=== PATIENT | female | born 1945 | race Caucasian/White ===

== ENCOUNTER → 2017-04-02 | Outpatient (CLI) | payer MEDICARE ==
[~2017-04-02] MED LIST: AMLO2.5T PO; BENA20TA2 PO; BETA1TAB3 PO; CETI10TA24 PO; CHOL200024 PO; CYAN1TAB29 PO; DILT120C64 PO; FENO134C PO; GABA300C10 PO; HYDR-3343 PO; HYDR25TA6 PO; LEVO175T5 PO; LIOT5TAB3 PO; METO25TA91 PO; MULT-717 PO; OMEP-110 PO; RIVA20TA PO; TRAM50TA2 PO; VITA1TAB3 PO
[2017-04-02 13:22] LABS: HEMATOCRIT 47.6 % (34.6-47.8); HEMOGLOBIN 16.5 g/dL (11.7-16.4); WHITE BLOOD COUNT 7.1 x10^3/uL (3.4-10)
[2017-04-02 13:35] LABS: ASPARTATE AMINO TRANSFERASE 36 U/L (15-37); BLOOD UREA NITROGEN 22 mg/dL (7-18)
== END | disposition home or self-care (01) ==
LOC: STAR 12:22
PROVIDERS: ATTEND Internal Medicine Cardiovascular Disease
DX: I48.1 Persistent atrial fibrillation (principal)
CPT/HCPCS: 36415; 80053; 85025; 85610; 85730

== ENCOUNTER → 2017-04-02 | Outpatient (CLI) | payer MEDICARE ==
[~2017-04-02] MED LIST changes: +HEPARIN 1,000 UNITS/ML, 10ML ONE; +OMNIPAQUE 350 MG/ML, 150 ML BOTTLE ONE; +PROTAMINE SULFATE 10 MG/ML, 5ML ONE; +VASOPRESSIN 20 UNIT/ML, 1ML ONE
== END | disposition home or self-care (01) ==
LOC: CFH 10:43
PROVIDERS: ATTEND Internal Medicine Cardiovascular Disease
DX: Z01.811 Encounter for preprocedural respiratory examination (principal); I48.0 Paroxysmal atrial fibrillation; K44.9 Diaphragmatic hernia without obstruction or gangrene
CPT/HCPCS: 71020; 75572; 82565; Q9967

== ENCOUNTER 2017-04-07 06:37 | Observation (INO) | payer MEDICARE ==
[2017-04-02 13:21] VITALS: BP 117/88
[~2017-04-07] VITALS: Ht 160 cm; Wt 88.8 kg
[~2017-04-07 06:37] MED LIST changes: -HEPARIN 1,000 UNITS/ML, 10ML ONE; -OMNIPAQUE 350 MG/ML, 150 ML BOTTLE ONE; -PROTAMINE SULFATE 10 MG/ML, 5ML ONE; -VASOPRESSIN 20 UNIT/ML, 1ML ONE
[2017-04-07] MEDS ORDERED: SODIUM CHLORIDE 0.9% 1,000 ML IV SCH ×2 (06:48→07:00)
[2017-04-07] MEDS ORDERED: MIDAZOLAM 1 MG/ML, 5ML ONE (07:43)
[2017-04-07] MEDS ORDERED: FENTANYL PF 250 MCG/5ML ONE (07:43)
[2017-04-07] MEDS ORDERED: PROPOFOL 10 MG/ML, 20ML ONE (08:05)
[2017-04-07] MEDS ORDERED: HEPARIN 1,000 UNITS/ML, 10ML ONE (08:05)
[2017-04-07] MEDS ORDERED: VASOPRESSIN 20 UNIT/ML, 1ML ONE (08:05)
[2017-04-07] MEDS ORDERED: DEXAMETHASONE 4 MG/ML, 1ML ONE (08:05)
[2017-04-07] MEDS ORDERED: SUCCINYLCHOLINE 20 MG/ML, 10ML ONE (08:05)
[2017-04-07] MEDS ORDERED: ONDANSETRON 2MG/ML, 2ML ONE (08:05)
[2017-04-07] MEDS ORDERED: PROTAMINE SULFATE 10 MG/ML, 5ML ONE (08:05)
[2017-04-07] MEDS ORDERED: LIDOCAINE 2%, 20ML ONE (08:19)
[2017-04-07] MEDS ORDERED: METOPROLOL SUCCINATE 25 MG TAB.ER.24H PO SCH (10:30)
[2017-04-07] MEDS ORDERED: RIVAROXABAN 20 MG TABLET PO SCH (10:30)
[2017-04-07] MEDS ORDERED: ZOLPIDEM 5MG TABLET PO PRN (10:30)
[2017-04-07] MEDS ORDERED: ACETAMINOPHEN 325 MG TABLET PO PRN ×2 (10:30→11:30)
[2017-04-07] MEDS ORDERED: OXYcodone 5 MG/5 ML ORAL.SOL UDC PO PRN (11:30)
[2017-04-07] MEDS ORDERED: HYDROmorphone 1 MG/ML, 1ML IV PRN (11:30)
[2017-04-07] MEDS ORDERED: MIDAZOLAM 1 MG/ML, 2ML IV PRN (11:30)
[2017-04-07] MEDS ORDERED: PROMETHAZINE 25 MG/ML, 1ML IV PRN (11:30)
[2017-04-07] MEDS ORDERED: ONDANSETRON 2MG/ML, 2ML IVPush PRN (11:30)
[2017-04-07] MEDS ORDERED: FENTANYL PF 100 MCG/2ML IV PRN (11:30)
[2017-04-07 15:00] VITALS: BP 113/69
[2017-04-07] MEDS: GABAPENTIN 300 MG CAPSULE PO SCH ×2 (16:44→21:04)
[2017-04-07 18:55] VITALS: BP 116/71
[2017-04-08 00:55] VITALS: BP 131/74
[2017-04-08 07:07] VITALS: BP 154/83
[2017-04-08] MEDS: GABAPENTIN 300 MG CAPSULE PO SCH (08:15)
[2017-04-08] MEDS ORDERED: FENOFIBRATE 145 MG TABLET PO SCH (09:00)
[2017-04-08] MEDS ORDERED: MULTIVITAMINS/MINERALS TABLET PO SCH (09:00)
[2017-04-08] MEDS ORDERED: FOLIC ACID 1 MG TABLET PO SCH (09:00)
[2017-04-08] MEDS ORDERED: DILTIAZEM 120 MG CAP.ER.24H PO SCH (09:00)
[2017-04-08] MEDS ORDERED: OMEPRAZOLE 10 MG CAPSULE.DR PO SCH (09:00)
[2017-04-08] MEDS ORDERED: CETIRIZINE 10 MG TABLET PO SCH (09:00)
[2017-04-08] MEDS ORDERED: HYDROCHLOROTHIAZIDE 25 MG TABLET PO SCH (09:00)
[2017-04-08] MEDS ORDERED: AMLODIPINE 2.5 MG TABLET PO SCH (09:00)
[2017-04-08] MEDS ORDERED: BENAZEPRIL 20 MG TABLET PO SCH (09:00)
[2017-04-08] MEDS ORDERED: LEVOTHYROXINE 175 MCG TABLET PO SCH (09:00)
[2017-04-08] MEDS ORDERED: CYANOCOBALAMIN 1,000 MCG TABLET PO SCH (09:00)
[2017-04-08] MEDS ORDERED: LIOTHYRONINE 5 MCG TABLET PO SCH (09:00)
[2017-04-08] MEDS ORDERED: CHOLECALCIFEROL 1,000 UNIT TABLET PO SCH (09:00)
[2017-04-08] MEDS ORDERED: MULTIVITS,STRESS FORMULA 1 TABLET PO SCH (09:00)
== END 2017-04-08 12:26 | disposition home or self-care (01) ==
LOC: CACL 06:37 → ORIP 10:30 → 5SO 12:04 → DCLOUNGE 04-08 11:50
PROVIDERS: ADMIT Internal Medicine Cardiovascular Disease; ATTEND Internal Medicine Cardiovascular Disease
DX: I48.91 Unspecified atrial fibrillation (principal); I48.92 Unspecified atrial flutter; Z79.01 Long term (current) use of anticoagulants
CPT/HCPCS: 85347; 93306; 93312; 93321; 93325; 93613; 93655; 93656; 93662; C1730; C1732; C1759; C1766; C1893; C1894; G0378; J0330; J1100; J1644; J2250; J2405; J2704; J2720; J3010; J3490

== ENCOUNTER → 2020-03-29 | Outpatient (CLI) | payer MEDICARE ==
[~2020-03-29] MED LIST changes: +AMLO10TA8 PO; -AMLO2.5T PO; +AMLO2.5T5 PO; +ASPI81TA45 PO; -BENA20TA2 PO; +BENA20TA54 PO; +CETI-158 PO; -CETI10TA24 PO; +CETI10TA76 PO; +CURCUMIN PO; +Cognium PO; +FLUO20TA25 PO; +LEVO200T5 PO; +LIOT5TAB11 PO; -LIOT5TAB3 PO; +LOSA25TA25 PO; +MELO15TA24 PO; +METO10TA2 PO; +METO75TA PO; +MULT-449 PO; +TIZA4TAB2 PO; +TOLT4CAP12 PO; +TRAZ50TA66 PO; +TURMERIC PO; +VITA1TAB19 PO; +Vitamin B12 PO
[2020-03-29 15:04] LABS: ALBUMIN 3.9 g/dL (3.4-5.0); ANION GAP 4 mmol/L (5-15); CALCIUM 9.6 mg/dL (8.5-10.1); CHLORIDE 99 mmol/L (98-107)
[2020-03-29 15:08] LABS: ALANINE AMINOTRANSFERASE 36 U/L (12-78); ALKALINE PHOSPHATASE 79 U/L (45-117); BILIRUBIN,TOTAL 0.6 mg/dL (0.2-1.0); CREATININE 1.24 mg/dL (0.55-1.02); TOTAL PROTEIN 8.2 g/dL (6.4-8.2)
== END | disposition home or self-care (01) ==
LOC: STAR 12:56
PROVIDERS: ATTEND Obstetrics & Gynecology Female Pelvic Medicine and Reconstructive Surgery
DX: Z01.812 Encounter for preprocedural laboratory examination (principal); Z20.828 Contact with and (suspected) exposure to other viral communicable diseases; N81.2 Incomplete uterovaginal prolapse; R10.2 Pelvic and perineal pain; N39.3 Stress incontinence (female) (male)
CPT/HCPCS: 36415; 80053; 87635; 93005

== ENCOUNTER 2020-04-02 06:46 | Day surgery (SDC) | payer MEDICARE ==
[~2020-04-02] VITALS: Ht 160 cm; Wt 70.9 kg
[2020-04-02] MEDS ORDERED: FUROSEMIDE 20 MG/2 ML ONE (06:59)
[2020-04-02] MEDS ORDERED: BUPIVACAINE/PF 0.25% ONE (06:59)
[2020-04-02] MEDS ORDERED: FLUORESCEIN SODIUM 500 MG/5 ML ONE (06:59)
[2020-04-02] MEDS ORDERED: EPINEPHRINE 1 MG/ML, 1ML ONE (06:59)
[2020-04-02] MEDS ORDERED: LACTATED RINGERS 1,000 ML IV SCH (07:00)
[2020-04-02] MEDS ORDERED: NEOMY/POLYMYXIN B GU IRR. 1 ML ONE (07:00)
[2020-04-02] MEDS ORDERED: CHLORHEXIDINE 15 ML UDC MM ONE (07:00)
[2020-04-02 07:06] VITALS: BP 137/79
[2020-04-02] MEDS ORDERED: ACETAMINOPHEN 500 MG TABLET ONE (07:23)
[2020-04-02] MEDS ORDERED: FENTANYL PF 250 MCG/5ML ONE (07:27)
[2020-04-02] MEDS ORDERED: ROCURONIUM 10 MG/ML,10ML ONE (07:29)
[2020-04-02] MEDS ORDERED: PROPOFOL 10 MG/ML, 20ML ONE (07:29)
[2020-04-02] MEDS ORDERED: ACETAMINOPHEN 500 MG TABLET PO ONE (07:30)
[2020-04-02] MEDS ORDERED: EPHEDRINE 50 MG/ML, 1ML ONE (07:39)
[2020-04-02] MEDS ORDERED: CEFAZOLIN 1,000 MG ONE ×2 (07:57)
[2020-04-02] MEDS ORDERED: ONDANSETRON 2MG/ML, 2ML ONE ×2 (07:57)
[2020-04-02] MEDS ORDERED: SUCCINYLCHOLINE 20 MG/ML, 10ML ONE (07:57)
[2020-04-02] MEDS ORDERED: DEXAMETHASONE 4 MG/ML, 1ML ONE ×2 (07:57)
[2020-04-02] MEDS ORDERED: PROMETHAZINE 12.5 MG SUPP PR PRN (08:00)
[2020-04-02] MEDS ORDERED: FENTANYL PF 100 MCG/2ML IV PRN (08:00)
[2020-04-02] MEDS ORDERED: DIPHENHYDRAMINE 50 MG/ML, 1ML IVPush PRN (08:00)
[2020-04-02] MEDS ORDERED: LABETALOL 5MG/ML, 20ML IV PRN (08:00)
[2020-04-02] MEDS ORDERED: DIAZEPAM 5 MG/ML, 2ML IVPush PRN (08:00)
[2020-04-02] MEDS ORDERED: MIDAZOLAM 1 MG/ML, 2ML IV PRN (08:00)
[2020-04-02] MEDS ORDERED: ONDANSETRON 2MG/ML, 2ML IVPush PRN (08:00)
[2020-04-02] MEDS ORDERED: MEPERIDINE/PF 25MG/0.5ML IVPush PRN (08:00)
[2020-04-02] MEDS ORDERED: HYDROmorphone 1 MG/ML, 1ML INJ IVPush PRN (08:00)
[2020-04-02] MEDS ORDERED: EPHEDRINE 50 MG/ML, 1ML IVPush PRN (08:00)
[2020-04-02] MEDS ORDERED: hydrALAzine 20 MG/ML, 1ML IV PRN (08:00)
[2020-04-02] MEDS ORDERED: ALBUTEROL SULFATE 2.5 MG/3 ML NPPB PRN (08:00)
[2020-04-02] MEDS ORDERED: PROMETHAZINE 25 MG/ML, 1ML IVPush PRN (08:00)
[2020-04-02] MEDS ORDERED: FENTANYL PF 100 MCG/2ML ONE (09:37)
[2020-04-02] MEDS ORDERED: OXYcodone 5 MG/5 ML ORAL.SOL UDC ONE (09:38)
[2020-04-02] MEDS: OXYcodone 5 MG/5 ML ORAL.SOL UDC PO PRN ×2 (09:40→10:32)
[2020-04-02] MEDS ORDERED: KETOROLAC 30 MG/1 ML ONE (09:55)
[2020-04-02] MEDS ORDERED: KETOROLAC 30 MG/1 ML IVPush ONE (10:00)
== END 2020-04-02 12:05 | disposition home or self-care (01) ==
LOC: OUT 06:46
PROVIDERS: ATTEND Obstetrics & Gynecology Female Pelvic Medicine and Reconstructive Surgery
DX: N81.2 Incomplete uterovaginal prolapse (principal); N72 Inflammatory disease of cervix uteri; N83.292 Other ovarian cyst, left side; N83.291 Other ovarian cyst, right side; N39.46 Mixed incontinence; N83.8 Other noninflammatory disorders of ovary, fallopian tube and broad ligament; N81.89 Other female genital prolapse; R10.2 Pelvic and perineal pain; I10 Essential (primary) hypertension; E03.9 Hypothyroidism, unspecified; J45.909 Unspecified asthma, uncomplicated; M19.90 Unspecified osteoarthritis, unspecified site; Z79.1 Long term (current) use of non-steroidal anti-inflammatories (NSAID); Z79.82 Long term (current) use of aspirin; Z79.890 Hormone replacement therapy; Z79.899 Other long term (current) drug therapy; Z88.2 Allergy status to sulfonamides; Z90.49 Acquired absence of other specified parts of digestive tract; Z98.890 Other specified postprocedural states
CPT/HCPCS: 57265; 57282; 57288; 58552; 88305; C1771; J0171; J0330; J0690; J1100; J1885; J1940; J2405; J2704; J3010; J3490; J7120